=== PATIENT | male | born 1970 | race Caucasian/White ===

== ENCOUNTER 2021-10-26 08:40 | Inpatient (IN) ==
--- NOTE | 2021-08-25 14:09 | PAT Medication Instructions ---
Medication Instructions Date of Service August 25, 2021 Home Medications escitalopram oxalate 20 mg tablet (Lexapro) 20 mg PO HS inulin 2 gram chewable tablet (Fiber Gummies) 4 g PO HS multivitamin 1 tab PO HS naproxen 500 mg tablet 500 mg PO BID PRN diclofenac sodium 75 mg tablet,delayed release 75 mg PO BID pantoprazole 40 mg granules delayed-release for susp in packet (Protonix) 40 mg PO QAM sildenafil 25 mg tablet 20 mg PO DAILY PRN tizanidine 4 mg capsule 4 mg PO BID PRN ASK your surgeon for instructions naproxen 500 mg tablet 500 mg PO BID PRN diclofenac sodium 75 mg tablet,delayed release 75 mg PO BID STOP taking 24 hours before surgery sildenafil 25 mg tablet 20 mg PO DAILY PRN DO NOT take the morning of surgery tizanidine 4 mg capsule 4 mg PO BID PRN Take morning of surgery With a small sip of water, OTHERWISE NOTHING TO EAT OR DRINK AFTER MIDNIGHT: pantoprazole 40 mg granules delayed-release for susp in packet (Protonix) 40 mg PO QAM Take evening before surgery escitalopram oxalate 20 mg tablet (Lexapro) 20 mg PO HS inulin 2 gram chewable tablet (Fiber Gummies) 4 g PO HS multivitamin 1 tab PO HS tizanidine 4 mg capsule 4 mg PO BID PRN (if needed) Other Notes If you have any questions please call us at [phone] or [phone] or [phone] or [phone]
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
[~2021-10-26 08:40] MED LIST: ACETAMINOPHEN 500 MG TAB PO SCH; CeleBREX 200 MG CAP PO SCH; GABAPENTIN 900 MG DOSE PO SCH; LR 15ML/HR IV SCH
[2021-10-26] MEDS ORDERED: KETAMINE 50 MG/5 ML SYRINGE ONE ×2 (09:22→12:24)
[2021-10-26] MEDS ORDERED: fentaNYL citrate 100 MCG/2 ML VIAL ONE (09:22)
[2021-10-26] MEDS ORDERED: ONDANSETRON INJ 2 MG/ML 2 ML VIAL ONE (09:22)
[2021-10-26] MEDS ORDERED: DEXAMETHASONE SOD INJ 4 MG/ML VIAL ONE (09:22)
[2021-10-26] MEDS ORDERED: MIDAZOLAM HCL 1 MG/ML 2ML VIAL ONE ×2 (09:22→12:24)
[2021-10-26] MEDS ORDERED: ROCURONIUM BROMIDE 10 MG/ML 5 ML VIAL IV ONE ×2 (09:22→10:59)
--- NOTE | 2021-10-26 09:40 | History & Physical Bridge Note ---
Date of Service October 26, 2021 History & Physical Bridge Note I have examined the patient, reviewed the History & Physical and in the interval since the performance of the History & Physical I have noted the following changes of clinical significance: no changes noted
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
[2021-10-26] MEDS ORDERED: ATROPINE SULFATE 0.1 MG/ML 10ML SYR IV PRN (09:43)
[2021-10-26] MEDS ORDERED: fentaNYL citrate 100 MCG/2 ML VIAL IV PRN (09:43)
[2021-10-26] MEDS ORDERED: HYDROmorphone INJ 2 MG/ML SYR/VIAL IV PRN (09:43)
[2021-10-26] MEDS ORDERED: ePHEDrine sulfate 50 MG/ML AMP IV PRN (09:43)
[2021-10-26] MEDS ORDERED: ONDANSETRON INJ 2 MG/ML 2 ML VIAL IV PRN ×2 (09:43→14:36)
[2021-10-26] MEDS ORDERED: ceFAZolin 330 MG/ML 1 GM VIAL ONE (09:54)
[2021-10-26] MEDS ORDERED: BUPIVACAINE/EPINEPHRINE 0.25% 1:200,000 30 ML VIAL ONE (09:54)
[2021-10-26] MEDS ORDERED: DexMEDEtomidine HCL IV 100 MCG/ML VIAL IV ONE (09:59)
[2021-10-26] MEDS ORDERED: FLOSEAL HEMOSTATIC MATRIX 10ML TOP ONE (10:54)
[2021-10-26] MEDS ORDERED: ALBUMIN HUMAN 5% 12.5 GM/250 ML VIAL IV ONE ×2 (10:55→12:23)
[2021-10-26] MEDS ORDERED: HYDROmorphone INJ 2 MG/ML SYR/VIAL ONE (10:59)
[2021-10-26] MEDS ORDERED: GLYCOPYRROLATE 0.2 MG/ML VIAL ONE (10:59)
[2021-10-26] MEDS ORDERED: ePHEDrine sulfate 50 MG/ML SYR ONE (10:59)
[2021-10-26] MEDS ORDERED: SUGAMMADEX SODIUM 200 MG/2 ML VIAL IV ONE (12:03)
--- NOTE | 2021-10-26 12:50 | Operative Report ---
Post Operative Report Pre & Post Diagnosis Operation Date: 10/26/21 10:05 Pre-Op Diagnosis: Lumbar disc herniation with radiculopathy Post-Op Diagnosis: Lumbar disc herniation with radiculopathy I identified the patient and participated in the time-out.: Yes Procedure Operation Date: 10/26/21 10:05 Actual Procedures #1 revision decompression with bilateral medial facetectomies and foraminotomies L3-L4 L4-5 L5-S1. #2 posterior spinal fusion L4-5 L5-S1. #3 placement posterior instrumentation L4-5 L5-S1. #4 placement of locally harvested morselized autograft in the posterior gutters per #5 placement infuse collagen sponge master graft in the posterior gutters. Surgeon Balbir Trimble, DO Production Cost Estimator Alina Saul Estimated Blood Loss 900 Findings See Below The patient is 5 foot 9 weighing over 177 kg with a BMI in excess of 57. Patient's body habitus and blood loss of 900 cc pretty significant technical difficulty at least 75% increase to the operative time. Specimens None Indications This is a 51-year-old male presents above-mentioned diagnosis after failing course of nonoperative care is here for biomed procedure. Description of Procedure Patient was met with identified informed consent obtained. Patient was then taken to the operative suite underwent a patient placed in a prone position the [place] table top Tin frame. All bony prominences well-padded eyes inspected to ensure no external pressure placed upon the. This point the lumbar spine was prepped and draped in a sterile fashion. Sharp dissection with the assistance of Bovie cartilage from down to expose the remaining lamina and transverse processes of L for L5 and the sacral ala bilaterally. From caudal cephalad fashion revision complete laminectomy of L5 L4 partial laminectomy of L3 was performed occluding bilateral medial facetectomies and foraminotomies addressing all neural compression. Pedicle screws were then placed in L4-L5 and S1 levels bilaterally with assistance of fluoroscopy and proper sized lindsay placed. Was then locked in position. The transverse processes of L4-L5 and sacral ala burred to subcortical bleeding bone. Infuse collagen sponge master graft local autograft was placed in the posterior gutters. 15 round GARRET drain inserted. The incision was then closed with 1 Vicryl the fascia 2-0 Vicryl subcutaneously and 4 Monocryl for final skin closure. I attest to the content of the Intraoperative Record and any orders documented therein. Any exceptions are noted below.
--- NOTE | 2021-10-26 13:09 | Fluoroscopy Report ---
FL lumbar spine 2-3V HISTORY: 51 years-old Male L5-S1 DECOMPRESSION FUSION AND INTERBODY COMPARISON: Lumbar spine MRI 07/11/2021 TECHNIQUE: 2 spot fluoroscopic images of the lumbar spine were obtained utilizing 37.7 seconds of flu oroscopy time FINDINGS: Posterior interbody lindsay and screw fusion hardware is noted at L4-S1. The hardware appears intact. Ali gnment appears satisfactory. IMPRESSION: Fluoroscopic assistance as above. ACT 112: Negative or not required by law. The above report was generated using voice recognition software. It may contain grammatical, syntax o r spelling errors. Electronically signed by: Cedric Askew M.D. 10/26/2021 1:07 PM
[2021-10-26 13:42] LABS: iSTAT Creatinine 0.8 mg/dl (0.6-1.3); iSTAT Hemoglobin 12.6 g/dl (14.0-18.0); iSTAT Ionized Calcium 1.2 mmol/l (1.12-1.32); iSTAT Potassium 4.2 mmol/L (3.3-5.0)
--- NOTE | 2021-10-26 13:54 | Anesthesiology Progress Note ---
Date of Service October 26, 2021 Anesthesia Post Procedure Vital Signs Vital Signs: Temp Pulse Pulse Resp BP Pulse Ox 10/26/21 13:45 36.7 C 85 18 153/74 H 98 10/26/21 13:35 77 18 148/81 H 97 10/26/21 13:25 93 H 15 144/72 H 99 10/26/21 13:16 36.6 C 76 14 183/92 H 98 10/26/21 09:10 37.2 C 74 20 145/69 H 97 Pain Intensity Lower Back: Pain Intensity: 6 Transfer of Care Handoff Completed per policy Notes Mental Status: alert / awake / arousable and participated in evaluation Patient Amnestic to Procedure: Yes Nausea / Vomiting: adequately controlled Pain: adequately controlled Airway Patency, RR, SpO2: stable & adequate BP & HR: stable & adequate Hydration State: stable & adequate Anesthetic Complications: no major complications apparent and Pt Satisfied with anesthetic care
[2021-10-26] MEDS ORDERED: traMADol HCL 50 MG TABLET PO PRN (14:36)
[2021-10-26] MEDS ORDERED: LORazepam 2 MG/1 ML VIAL IV PRN (14:36)
[2021-10-26] MEDS ORDERED: FAMOTIDINE 20 MG TAB PO PRN (14:36)
[2021-10-26] MEDS ORDERED: bisacodyL 10 MG SUPP PR PRN (14:36)
[2021-10-26] MEDS ORDERED: HYDROmorphone INJ 1 MG/ML SYRINGE IV PRN (14:36)
[2021-10-26] MEDS ORDERED: ACETAMINOPHEN 1,000 MG/100 ML VIAL IV PRN (14:36)
[2021-10-26] MEDS ORDERED: LACTATED RINGER'S 1,000 ML IV SCH (14:36)
[2021-10-26] MEDS ORDERED: ALUMINUM/MAGNESIUM SUSP 30 ML UDC PO PRN (14:36)
[2021-10-26] MEDS ORDERED: ONDANSETRON 4 MG OD TAB PO PRN (14:36)
[2021-10-26] MEDS ORDERED: NALOXONE HCL 0.4 MG/1 ML VIAL/CARP IV PRN (14:36)
[2021-10-26] MEDS ORDERED: MAGNESIUM HYDROXIDE SUSP 30 ML UDC PO PRN (14:36)
[2021-10-26] MEDS ORDERED: DO NOT ADMINISTER PNEUMOCOCCAL VACCINE PRN (14:36)
[2021-10-26] MEDS ORDERED: SOD PHOSPHATE/SOD BIPHOSPHATE ENEMA 132 ML BTL PR PRN (14:36)
[2021-10-26] MEDS ORDERED: DO NOT ADMINISTER FLU VACCINE PRN (14:36)
[2021-10-26] MEDS ORDERED: METOCLOPRAMIDE HCL INJ 5 MG/ML 2 ML VIAL IV PRN (14:36)
[2021-10-26] MEDS ORDERED: PROMETHAZINE HCL 12.5 MG in SODIUM CHLORIDE 0.9% 50 ML IV PRN (14:36)
[2021-10-26] MEDS ORDERED: LORazepam 0.5 MG TAB PO PRN (14:36)
[2021-10-26] MEDS ORDERED: hydrOXYzine HCl 25 MG TAB PO PRN (14:36)
[2021-10-26] MEDS ORDERED: diphenhydrAMINE Capsule 25 MG CAP PO PRN (14:36)
[2021-10-26] MEDS ORDERED: HYDROmorphone INJ 0.5 MG/0.5 ML SYR IV PRN (14:36)
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
[2021-10-26] MEDS: oxyCODONE HCL IR 5 MG TAB (IMMEDIATE RELEASE) PO PRN (15:59)
[2021-10-26] MEDS: KETOROLAC 30 MG/ML VIAL IV SCH (18:02)
[2021-10-26] MEDS: ceFAZolin 2000MG 2,000 MG/15 ML SYR IV SCH (18:02)
[2021-10-26] MEDS: DULoxetine HCL 60 MG CAP PO SCH (21:28)
[2021-10-26] MEDS: MULTIVITAMIN TAB PO SCH (21:28)
[2021-10-26] MEDS: DOCUSATE SODIUM/SENNA 50/8.6MG TAB PO SCH (21:28)
[2021-10-27] MEDS: KETOROLAC 30 MG/ML VIAL IV SCH ×3 (00:58→11:24)
[2021-10-27] MEDS: ceFAZolin 2000MG 2,000 MG/15 ML SYR IV SCH (01:00)
[2021-10-27] MEDS: POLYETHYLENE (MIRALAX) 17 GM PACK PO SCH ×4 (06:16→23:18)
[2021-10-27 06:17] LABS: Hematocrit (blood only) 33.5 % (42-52); Hemoglobin 11.8 g/dL (14.0-18.0); Immature Granulocytes # (auto) 0.03 K/uL (0.00-0.02); Immature Granulocytes % (auto) 0.2 %; Lymphocytes # (auto) 1.08 K/uL (1.2-3.4); Lymphocytes % (auto) 8.1 %; Mean Corpuscular Hemoglobin 31.1 pg (25-34); Mean Corpuscular Hgb Conc 35.2 g/dL (32-36); Mean Corpuscular Volume 88.2 fL (80-100); Mean Platelet Volume 10.5 fL (7.4-10.4); Monocytes # (auto) 1.56 K/uL (0.11-0.59); Monocytes % (auto) 11.6 %; Neutrophils # (auto) 10.73 K/uL (1.4-6.5); Neutrophils % (auto) 80.1 %; Platelet Count 236 K/uL (130-400); RDW Coefficient of Variation 12.6 % (11.5-14.5); RDW Standard Deviation 40.7 fL (36.4-46.3)
[2021-10-27 06:40] LABS: BUN Creatinine Ratio 16.2 (10-20); Calcium 8.8 mg/dl (8.5-10.1); Creatinine Clr Calc Pharmacy 187.1 ml/min; Est GFR (African American) 122.9 ml/min; Est GFR (Non-African American) 106.1 ml/min; Potassium 4.2 mmol/L (3.5-5.1)
[2021-10-27] MEDS: PANTOprazole 40 MG TAB PO SCH (07:36)
[2021-10-27] MEDS: ACETAMINOPHEN 500 MG TAB PO PRN (07:36)
--- NOTE | 2021-10-27 08:43 | Orthopedic Progress Note ---
Date of Service October 27, 2021 Assessment & Plan (1) Lumbar back pain with radiculopathy affecting right lower extremity: Plan: Patient stable postop day 1. We will continue with GI DVT prophylaxis continue with mobilization efforts. Anticipate discharge to home on Saturday. Admission and Anticipated Discharge Date Admission Date: October 26, 2021 Subjective Patient seen bedside in room 306 he is postop day 1 status post lumbar decompression and fusion at L5-S1. He has some soreness in his back. To have some mild dizziness when he went to get up earlier today. His pain is controlled. He is not having any radicular complaints at this time he denies any other numbness, tingling, or paresthesias. Physical Exam Physical Exam: On exam he is lying comfortably in bed. He is in no apparent distress. His abdomen soft nontender his calves are supple nontender. His GARRET drain is in place and is holding suction he has had 45 cc of drainage this shift and 10 on the previous. His strength and sensation grossly intact. Results & Data ([facility]) Vital Signs (Past 12 Hours) Vital Signs Temp Pulse Pulse Resp BP Pulse Ox 10/27/21 07:11 37.2 C 79 16 132/76 98 10/27/21 06:14 60 125/57 L 10/27/21 04:08 36.7 C 76 18 145/62 H 96 10/26/21 21:37 36.4 C L 85 18 145/73 H 93
[2021-10-27] MEDS: oxyCODONE HCL IR 5 MG TAB (IMMEDIATE RELEASE) PO PRN (09:15)
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
[2021-10-27] MEDS: DULoxetine HCL 60 MG CAP PO SCH (21:03)
[2021-10-27] MEDS: DOCUSATE SODIUM/SENNA 50/8.6MG TAB PO SCH (21:06)
[2021-10-27] MEDS: MULTIVITAMIN TAB PO SCH (21:33)
[2021-10-28] MEDS: oxyCODONE HCL IR 5 MG TAB (IMMEDIATE RELEASE) PO PRN ×3 (03:02→19:57)
[2021-10-28] MEDS: POLYETHYLENE (MIRALAX) 17 GM PACK PO SCH ×4 (05:20→23:48)
[2021-10-28 06:18] LABS: Hematocrit (blood only) 33.4 % (42-52); Hemoglobin 11.6 g/dL (14.0-18.0); Mean Corpuscular Hemoglobin 30.8 pg (25-34); Mean Corpuscular Hgb Conc 34.7 g/dL (32-36); Mean Corpuscular Volume 88.6 fL (80-100); Mean Platelet Volume 10.3 fL (7.4-10.4); Platelet Count 212 K/uL (130-400); RDW Coefficient of Variation 12.9 % (11.5-14.5); Red Blood Count 3.77 M/uL (4.7-6.1); White Blood Count 13.08 K/uL (4.8-10.8)
--- NOTE | 2021-10-28 08:36 | Orthopedic Progress Note ---
Date of Service October 28, 2021 Assessment & Plan (1) Lumbar disc herniation with radiculopathy: Plan: Patient is postoperative day 2 L4-S1 decompression and instrumented fusion. We will continue with physical therapy today. Continue with bowel regimen. DVT prophylaxis in the form teds and SCDs. Continue with pain control. Anticipate discharge home tomorrow Admission and Anticipated Discharge Date Admission Date: October 26, 2021 Robin Daniels is postoperative day 2/spinal fusion L4-S1. He is doing well. Right lower extremity symptoms are improving. He is passing flatus but no bowel movement yet. GARRET drain output last shift was 40 cc. Yesterday in physical therapy ambling roughly 100 feet. H&H is morning are 11.6 and 33.4 respectively. Did note some episodes of dizziness when changing positions yesterday. Review of Systems Review of Systems: All systems reviewed & are unremarkable except as noted in HPI & below Physical Exam Physical Exam: Lying in bed in no acute distress Alert and oriented x3 Calves are soft nontender bilateral lower extremities Strength is intact bilateral lower extremities Lumbar dressing is clean dry and intact with functioning GARRET drain Results & Data ([facility]) Vital Signs (Past 12 Hours) Vital Signs Temp Pulse Resp BP Pulse Ox 10/28/21 07:33 37 C 77 16 119/63 95 10/27/21 23:01 36.7 C 77 17 125/67 96
[2021-10-28] MEDS: PANTOprazole 40 MG TAB PO SCH (10:17)
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
[2021-10-28] MEDS: MULTIVITAMIN TAB PO SCH (20:00)
[2021-10-28] MEDS: DOCUSATE SODIUM/SENNA 50/8.6MG TAB PO SCH (20:00)
[2021-10-28] MEDS: DULoxetine HCL 60 MG CAP PO SCH (20:00)
[2021-10-29] MEDS: POLYETHYLENE (MIRALAX) 17 GM PACK PO SCH ×2 (05:18→11:14)
[2021-10-29] MEDS: oxyCODONE HCL IR 5 MG TAB (IMMEDIATE RELEASE) PO PRN ×2 (05:18→20:36)
[2021-10-29 06:07] LABS: Basophils # (auto) 0.05 K/uL (0-0.2); Basophils % (auto) 0.5 %; Eosinophils % (auto) 1.1 %; Hematocrit (blood only) 32.8 % (42-52); Immature Granulocytes # (auto) 0.03 K/uL (0.00-0.02); Immature Granulocytes % (auto) 0.3 %; Lymphocytes % (auto) 28.3 %; Mean Corpuscular Hemoglobin 30.3 pg (25-34); Mean Corpuscular Hgb Conc 33.5 g/dL (32-36); Mean Corpuscular Volume 90.4 fL (80-100); Mean Platelet Volume 10.2 fL (7.4-10.4); Monocytes % (auto) 10.9 %; Neutrophils # (auto) 5.41 K/uL (1.4-6.5); Neutrophils % (auto) 58.9 %; Platelet Count 206 K/uL (130-400); RDW Coefficient of Variation 12.7 % (11.5-14.5); RDW Standard Deviation 42.1 fL (36.4-46.3); Red Blood Count 3.63 M/uL (4.7-6.1); White Blood Count 9.19 K/uL (4.8-10.8)
[2021-10-29] MEDS: ACETAMINOPHEN 500 MG TAB PO PRN (08:25)
[2021-10-29] MEDS: PANTOprazole 40 MG TAB PO SCH (08:26)
--- NOTE | 2021-10-29 10:09 | Orthopedic Progress Note ---
Date of Service October 29, 2021 Assessment & Plan (1) Lumbar disc herniation with radiculopathy: Plan: This time we will continue physical therapy. I will maintain his GARRET drain. Most likely discharge home tomorrow. Admission and Anticipated Discharge Date Admission Date: October 26, 2021 Subjective Patient is still struggling with significant back pain. Particularly with transitions. Otherwise he is stable. His leg symptoms are improved. Physical Exam Physical Exam: Patient is demonstrating good strength detailed testing lower extremities. Sensory intact. Results & Data ([facility]) Vital Signs (Past 12 Hours) Vital Signs Temp Pulse Resp BP Pulse Ox 10/29/21 07:35 36.7 C 74 16 135/67 97 10/28/21 23:28 37.1 C 94 H 17 107/58 L 96
[2021-10-29] MEDS: dexAMETHasone 8 MG in SYRINGE 0 ML IV SCH (11:14)
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
[2021-10-29] MEDS: MULTIVITAMIN TAB PO SCH (20:36)
[2021-10-29] MEDS: DULoxetine HCL 60 MG CAP PO SCH (20:37)
[2021-10-29] MEDS: DOCUSATE SODIUM/SENNA 50/8.6MG TAB PO SCH (20:37)
[2021-10-30] MEDS: dexAMETHasone 8 MG in SYRINGE 0 ML IV SCH (08:06)
[2021-10-30] MEDS: PANTOprazole 40 MG TAB PO SCH (08:06)
[2021-10-30] MEDS: ACETAMINOPHEN 500 MG TAB PO PRN (08:08)
--- NOTE | 2021-10-30 14:40 | Discharge Summary ---
Date of Service October 30, 2021 Admission HPI Per Admitting Provider This is a 51-year-old male who presents with chronic persistent back and leg pain. Failing course of nonoperative care is here for surgical invention. Principal Diagnosis Lumbar spinal stenosis with radiculopathy Discharge Data Allergies Allergy/AdvReac Type Severity Reaction Status Date / Time No Known Allergies Allergy Unknown Verified 10/26/21 09:16 Consultations 10/26/21 14:36 Consult Hospitalist Routine Procedures Performed Operation Date: 10/26/21 10:05 Actual Procedures p L5-S1 Decompression and Fusion, Spinal Cord Monitoring(Not Applicable) - Balbir Trimble DO Ordered Studies 10/26/21 10:05 [place] lumbar spine 2-3V Routine Hospital Course (1) Lumbar disc herniation with radiculopathy: Patient underwent lumbar decompression fusion tolerated this well was taken to orthopedic for approximately. Postop day #1 he was up and ambulating progressed to postop day #2 and 3. Tolerating physical therapy well. Excellent strength testing. GARRET drain decreasing appropriately. Subsequently discharged home. Discharge orders instructions from the chart for further review. Total Time Total Time Spent Total Time Spent (In Minutes): 20 minutes Discharge Plan Discharge Items Patient Disposition: Home - Self-Care Reason For Visit: Thoracolumbar and Lumbosacral Intervetebral Disc Discharge Diagnosis: Lumbar spinal stenosis with radiculopathy Activity: As commented below Non-emergency contact: Primary Care Provider Call non-emergency contact if: you have any medication questions Follow-up/Referrals: Miles Dang MD [Primary Care Provider] - Diet: Regular Addtl Attending Provider Instructions: ACTIVITY RECOMMENDATIONS: SELF CARE INSTRUCTIONS AFTER THORACIC/LUMBAR FUSIONS 1. You may walk to your tolerance. It is good exercise for your legs and back. Expect some back and intermittent leg aches and pains. 2. You may perform "counter-top" level activities (make a sandwich, vicky with a project, etc.). 3. No bending or lifting of more than 10 pounds or back twisting of any nature (roll like a log when turning in bed). 4. You may ride in a car for 20-30 minutes at a time. No driving until after your first visit with your doctor. 5. Frequent changes of position and restricting sitting to 30 minutes at a time will help limit the amount of back spasms and stiffness you may experience. 6. You may discontinue the use of ambulatory aids (cane, crutches, etc.) once your strength and confidence allow. 7. You may tin pourer the shower and let water strike your incision when you arrive home at least once daily. Do not take a tub bath, sit in a hot tub or go into a swimming pool until after your first recheck in the office. SPECIAL CARE INSTRUCTIONS: VERY IMPORTANT TO READ AND REVIEW A. Your surgical incision has been closed with a cosmetic suture under the skin that will dissolve in about 6 weeks. In 14 days, you can use a pair of clean scissors and cut the suture that is left outside of the skin at the ends of your incision. 1. The small skin tapes can be removed 7 days after surgery if they have not fallen off by that point. 2. You may keep the wound open to air as much as possible to promote healing after post-op day number 5 unless told otherwise by your doctor. 3. If you think the wound looks like it is becoming infected (redness or worsening drainage) and/or you are experiencing fever, chill or worsening back pain and muscle spasms, contact the office so that we may evaluate you as soon as possible. B. Complications are uncommon, but please contact us if you have any signs or symptoms of: 1. wound infection (fever higher than 102.5 degrees F, redness, separation of wound, drainage, or increasing pain from the incision) 2. blood clots in legs (pain, swelling, redness and warmth in legs) 3. urinary tract infection (fever higher than 102.5 degrees F, burning upon urination or increased frequency of urination) 4. nerve problems (inability to walk on your toes or heels, numbness, loss of bowel or bladder control) 5. any other symptoms that concern you C. Please call the office at if you have any concerns or questions about your operation or recovery. D. No smoking! Smoking drastically decreases the chance of a solid fusion. E. Do not take any anti-inflammatory medications (Indocin, Advil, Motrin, Aspirin, Naprosyn, etc.) as these may inhibit the chance of a solid fusion. Tylenol is okay to take for pain. MANAGING PAIN AFTER SPINAL SURGERY 1. Narcotic medication is intended for short-term use and will be provided for surgical pain. Surgical pain usually lasts for a period of 4-6 weeks. Narcotic medication includes Percocet, Vicodin, Darvocet, Tylenol #3 or Lortab. 2. Longer-term pain is more appropriately treated with non-narcotic medication such as Tylenol ES. 3. Muscle spasm is not appropriately treated with narcotics. Muscle relaxers such as Soma, Flexeril or Skelaxin can be used along with Tylenol ES. 4. Remember that we all live with some "aches and pains". This is not unusual or uncommon after an injury or as we get older. a. Back pain is expected and may include muscle spasms for 4 to 6 weeks after surgery. The pain should gradually improve. If the pain worsens for no apparent reason, please contact the office. b. Intermittent leg pain may also be experienced and should not be concerned about unless it worsens for no apparent reason. If so, please contact the office. 5. We will provide appropriate medication within the normal guidelines of their prescribed use. We will also be very cautious and aware of potential abuse and extended duration of patients' medication needs. a. Pain medications are for your comfort and to assist with sleep and rest so that the tissue can heal. They are not provided in order to return to normal activity and should not be used through the day. To do so or worsening pain at night can result from ongoing tissue damage and development of tolerance to the prescribed medicine. 6. Please allow 2-3 days to process refills. Prescriptions will not be mailed but must be picked up at the office. FOLLOW UP VISIT: Keep your scheduled follow-up appointment. Any questions, please call the office at . Pending Studies at Discharge: No Stand-Alone Forms: My [facility], Opioid Pain Management, Smoking Cessation Medications and DC Order Prescriptions: New tramadol 50 mg tablet 50 mg PO Q6H PRN (Reason: pain, moderate) Qty: 30 RF: 0 oxycodone 5 mg tablet 5 mg PO Q6H PRN (Reason: pain, severe) Qty: 30 RF: 0 Continued sildenafil 25 mg tablet 20 mg PO DAILY PRN (Reason: Erectile Dysfunction) RF: 0 pantoprazole [Protonix] [address] for susp in packet 40 mg PO QAM RF: 0 multivitamin Tablet,Chewable 1 tab PO HS RF: 0 Fiber Gummies 2 gram Tablet,Chewable 4 g PO HS RF: 0 duloxetine 60 mg Capsule,Delayed Release(Dr/Ec) 60 mg PO HS RF: 0 Discontinued diclofenac sodium 75 mg tablet,delayed release (DR/EC) 75 mg PO BID RF: 0 Discharge Orders: Discharge Order (Routine); Ordered 10/30/21 Ordered By: Balbir Hassan/Other Patient Handouts: Post-Op Tips: Back Admission Data Admit Date/Time: 10/26/21 12:53 Attending Provider: Balbir Trimble Admit Provider: Balbir Trimble Primary Care Provider: Miles Dang Other Providers: Carmen Goldberg Other Interventions: Discharge Summary Assessment (RN) Last Done: 10/30/21 11:37
== END 2021-10-30 14:13 | disposition home or self-care (01) | DRG 460 ==
LOC: ASU 08:40 → PACUINP 12:53 → 3E 15:14